=== PATIENT | female | born 1995 | race Caucasian/White ===

== ENCOUNTER 2017-08-07 04:02 | Inpatient (IN) | payer BC, MEDICAID ==
[2017-08-07] MEDS ORDERED: LACTATED RINGER'S 500 ML IV (04:26)
[2017-08-07] MEDS ORDERED: OXYTOCIN 30 UNITS/LR 500 ML IV ×3 (04:30→18:00)
[2017-08-07] MEDS ORDERED: BUTORPHANOL 2 MG INJ IV ×2 (04:30)
[2017-08-07] MEDS ORDERED: METHYLERGONOVINE 0.2 MG INJ IM (04:30)
[2017-08-07] MEDS ORDERED: MISOPROSTOL 200 MCG TAB PR ×2 (04:30→18:00)
[2017-08-07] MEDS ORDERED: CARBOPROST 250 MCG INJ IM ×2 (04:30→18:00)
[2017-08-07] MEDS: LACTATED RINGER'S 1,000 ML IV ×3 (04:46→20:26)
[2017-08-07 05:01] LABS: ADD MAN DIFF? NO
[2017-08-07 05:20] LABS: BASOPHILS % 0.2 % (0.0-2.0); EOSINOPHILS # 0.1 10^3/ul (0.0-0.5); EOSINOPHILS % 0.8 % (0.0-7.0); HEMATOCRIT 33.5 % (37.0-47.0); HEMOGLOBIN 10.9 g/dl (12.0-16.0); LYMPHOCYTES # 1.8 10^3/ul (0.8-2.9); LYMPHOCYTES % 18.5 % (15.0-51.0); MEAN CORPUSCULAR HEMOGLOBIN 25.8 pg (29.0-33.0); MEAN CORPUSCULAR HGB CONC 32.5 g/dl (32.0-37.0); MEAN CORPUSCULAR VOLUME 79.4 fl (82.0-101.0); MEAN PLATELET VOLUME 12.5 fl (7.4-10.4); MONOCYTE # 0.9 10^3/ul (0.3-0.9); NEUTROPHILS % 70.5 % (39.0-77.0); PLATELET COUNT 210 10^3/UL (140-415); RED BLOOD COUNT 4.22 10^6/ul (4.20-5.40); RED CELL DISTRIBUTION WIDTH 15.1 % (11.5-14.5)
[2017-08-07] MEDS ORDERED: FENTAnyl 2MCG/ML-ROPIV 0.2% 100 ML (05:46)
[2017-08-07 06:04] LABS: HEPATITIS B SURFACE ANTIGEN NEGATIVE (NEGATIVE)
[2017-08-07 06:10] LABS: PROTIME 12.2 Sec (11.9-14.9)
[2017-08-07 06:11] LABS: PARTIAL THROMBOPLASTIN TIME 26.7 Sec (25.0-35.0)
[2017-08-07] MEDS ORDERED: NALOXONE (0.4 MG/ML) INJ IV (06:30)
[2017-08-07] MEDS ORDERED: FENTAnyl 2MCG/ML-ROPIV 0.2% 100 ML BAG EPI (06:30)
[2017-08-07] MEDS ORDERED: DIPHENHYDRAMINE 50 MG INJ IV (06:30)
[2017-08-07] MEDS ORDERED: ONDANSETRON 4 MG INJ IV (06:30)
[2017-08-07 06:55] LABS: ADD UMIC YES; UR ASCORBIC ACID NEGATIVE (NEGATIVE); UR BILIRUBIN (Dip) NEGATIVE (NEGATIVE); UR BLOOD (Dip) NEGATIVE (NEGATIVE); UR CLARITY CLEAR (CLEAR); UR COLOR YELLOW (YELLOW); UR GLUCOSE (Dip) NEGATIVE (NEGATIVE); UR KETONES (Dip) TRACE mg/dL (NEGATIVE); UR LEUKOCYTE ESTERASE (Dip) NEGATIVE Leu/ul (NEGATIVE); UR MUCUS FEW /HPF (NONE SEEN); UR NITRITE (Dip) NEGATIVE (NEGATIVE); UR RBC 2 /HPF (0-5); UR SPECIFIC GRAVITY (Dip) 1.029 (1.003-1.030); UR TOTAL PROTEIN (Dip) 3+ mg/dl (NEGATIVE); UR UROBILINOGEN (Dip) NEGATIVE (NEGATIVE); UR WBC 2 /HPF (0-5)
[2017-08-07 07:03] LABS: ALANINE AMINOTRANSFERASE 25 IU/L (13-69); ALBUMIN 3.5 g/dl (3.3-4.9); ALBUMIN/GLOBULIN RATIO 1.06; ALKALINE PHOSPHATASE 235 IU/L (42-121); ANION GAP 14 (8-16); ASPARTATE AMINO TRANSFERASE 33 IU/L (15-46); BLOOD UREA NITROGEN 16 mg/dl (7-20); CALCIUM 8.9 mg/dl (8.4-10.2); CARBON DIOXIDE 24 mmol/L (21-31); CHLORIDE 104 mmol/L (97-110); CREATININE 0.62 mg/dl (0.44-1.00); GLUCOSE 92 mg/dl (70-220); POTASSIUM 4.2 mmol/L (3.5-5.1); SODIUM 138 mmol/L (135-144); TOTAL PROTEIN 6.8 g/dl (6.1-8.1); URIC ACID 5.6 mg/dl (3.1-7.9)
[2017-08-07] MEDS ORDERED: MAGNESIUM SULFATE 4 GM/100 ML 100 ML (08:09)
[2017-08-07] MEDS ORDERED: MAGNESIUM SULFATE 20 GM/500 ML IV (08:09)
[2017-08-07] MEDS: MAGNESIUM SULFATE 4 GM/100 ML 100 ML IVPB (08:17)
[2017-08-07] MEDS: MAGNESIUM SULFATE 20 GM/500 ML 500 ML IV ×2 (08:44→18:45)
[2017-08-07 13:01] LABS: MAGNESIUM 5.6 mg/dl (1.7-2.5)
[2017-08-07] MEDS: OXYTOCIN 30 UNITS/LR 500 ML IV ×5 (14:30→21:56)
[2017-08-07] MEDS: IBUPROFEN 600 MG TAB PO (14:49)
[2017-08-07] MEDS ORDERED: LABETALOL HCL 20MG INJ (14:59)
[2017-08-07] MEDS: LABETALOL HCL 20MG INJ IV (15:03)
[2017-08-07] MEDS: HYDROCODONE/APAP (5/325) TAB PO (15:58)
[2017-08-07] MEDS ORDERED: SENNA/DOCUSATE NA (8.6MG/50MG) TAB PO (18:00)
[2017-08-07] MEDS ORDERED: ACETAMINOPHEN 500 MG TAB PO (18:00)
[2017-08-07] MEDS ORDERED: DIBUCAINE 1% 30 GM OINT PR (18:00)
[2017-08-07] MEDS ORDERED: OXYCODONE/ASPIRIN (4.88/325) TAB PO ×2 (18:00)
[2017-08-07] MEDS: LIDOCAINE 1% (MPF) 30 ML INJ INJ (18:02)
[2017-08-07] MEDS: LANOLIN 7 GM TUBE TOP (19:59)
[2017-08-07] MEDS: WITCH HAZEL/GLYCERIN PAD PR (19:59)
[2017-08-07] MEDS: BENZOCAINE 20% 56 ML SPRAY TOP (20:00)
[2017-08-07] MEDS: LABETALOL 200 MG TAB PO (21:36)
[2017-08-07 22:30] LABS: RAPID PLASMA REAGIN NONREACTIVE (NR)
[2017-08-08 00:41] LABS: MAGNESIUM 5.7 mg/dl (1.7-2.5)
[2017-08-08] MEDS: OXYTOCIN 30 UNITS/LR 500 ML IV ×6 (01:46→21:46)
[2017-08-08] MEDS: MAGNESIUM SULFATE 20 GM/500 ML 500 ML IV (05:00)
[2017-08-08] MEDS: LACTATED RINGER'S 1,000 ML IV ×3 (05:54→20:26)
[2017-08-08 08:14] LABS: WHITE BLOOD COUNT 14.6 10^3/ul (4.8-10.8)
[2017-08-08 08:14] LABS: HEMATOCRIT 22.1 % (37.0-47.0); HEMOGLOBIN 7.1 g/dl (12.0-16.0); MEAN CORPUSCULAR HEMOGLOBIN 25.8 pg (29.0-33.0); MEAN CORPUSCULAR HGB CONC 32.1 g/dl (32.0-37.0); MEAN CORPUSCULAR VOLUME 80.4 fl (82.0-101.0); MEAN PLATELET VOLUME 11.8 fl (7.4-10.4); NUCLEATED RED BLOOD CELLS% 0.1 /100WBC (0.0-0.0); PLATELET COUNT 160 10^3/UL (140-415); RED BLOOD COUNT 2.75 10^6/ul (4.20-5.40); RED CELL DISTRIBUTION WIDTH 15.9 % (11.5-14.5)
[2017-08-08 08:23] LABS: ADD MAN DIFF? YES; POSITIVE DIFF @See below
[2017-08-08 08:47] LABS: MAGNESIUM 5.5 mg/dl (1.7-2.5)
[2017-08-08] MEDS: LABETALOL 200 MG TAB PO ×2 (09:00→21:00)
[2017-08-08 09:45] LABS: ANISOCYTOSIS 2+ (0-0); BAND NEUTROPHILS #M 0.5 10^3/ul (0.0-0.6); BAND NEUTROPHILS % (M) 4 % (0-4); ERYTHROBLAST% (NRBC) (M) 1 % (0-0); GIANT THROMBO% (M) 2 % (0-0); LYMPHOCYTES #M 1.3 10^3/ul (0.8-2.9); LYMPHOCYTES % (M) 9 % (15-51); MICROCYTOSIS 2+ (0-0); MONOCYTE #M 1.1 10^3/ul (0.3-0.9); MONOCYTES % (M) 8 % (0-11); PLATELET ESTIMATE NORMAL; SEG NEUT #M 11.6 10^3/ul (1.7-7.5); SEGMENTED NEUTROPHILS (M) % 79 % (39-77); SMUDGE%M 6 % (0-0)
[2017-08-08] MEDS: IBUPROFEN 600 MG TAB PO (15:27)
[2017-08-08] MEDS: INFLUENZA VIRUS VACCINE 0.5 ML SYG IM* (18:49)
[2017-08-09] MEDS: OXYTOCIN 30 UNITS/LR 500 ML IV ×3 (01:46→09:46)
[2017-08-09] MEDS: LACTATED RINGER'S 1,000 ML IV (04:26)
[2017-08-09] MEDS: IBUPROFEN 600 MG TAB PO (06:18)
[2017-08-09] MEDS: LABETALOL 200 MG TAB PO (09:00)
[2017-08-09] MEDS: DIPHTH/TET/ACEL PERTUSS (ADULT) 0.5 ML VIAL IM* (11:38)
== END 2017-08-09 12:10 | disposition home or self-care (01) | DRG 775 ==
LOC: OBT 04:02 → L-D 04:04 → OBT 04:19 → L-D 04:22 → PP1 18:11
PROC: 10E0XZZ Delivery of Products of Conception, External Approach (ICD-10-PCS; principal; 2017-08-07)
PROC: 3E033VJ Introduction of Other Hormone into Peripheral Vein, Percutaneous Approach (ICD-10-PCS; 2017-08-07)
DX: O69.81X0 Labor and delivery complicated by cord around neck, without compression, not applicable or unspecified (principal); Z37.0 Single live birth; Z3A.39 39 weeks gestation of pregnancy
CPT/HCPCS: 62319; 80053; 81001; 83735; 84560; 85025; 85384; 85610; 85730; 86592; 86850; 86900; 86901; 87340; 90686; 90715; 99464